=== PATIENT | male | born 1935 | race Caucasian/White ===

== ENCOUNTER 2016-08-25 13:53 | Inpatient (IN) | payer MEDICARE, OTHER ==
--- NOTE | ~2016-08-25 | DS ---
Discharge Summary [facility] [address] [place]. [address] NAME: SUZANNA WILKINSON : 31 STATUS : DIS IN PAT#: [id number] AGE: 81 ADM/REG DATE : 08/25/16 MR#: [id number] REPORT SERV DATE: 08/28/16 DICTATED BY: JHON WILLARD DATE: 08/28/16 REPORT STATUS : Draft TRANSCRIBED BY: MODL DATE: 08/28/16 ADMISSION DATE: 08/25/2016 DISCHARGE DATE: 08/28/2016 DISCHARGE DIAGNOSES: 1. Bronchitis versus early pneumonia. 2. Acute hypoxic respiratory failure secondary to above, the patient is being discharged to home with 2 L of oxygen per nasal cannula. 3. Initially suspected pulmonary embolism, however, ruled out during this hospital stay. 4. History of coronary artery disease. 5. History of peripheral artery disease. 6. History of dementia. 7. Do not resuscitate. CONSULTANTS: None. PROCEDURES: None. HOSPITAL COURSE: This is an 81-year-old gentleman with underlying dementia, who was admitted to the hospital with initial concerns for possible PE. For details, please refer to H and P by Dr. Braeden Saleh. In summary, the patient was admitted and was started on IV heparin drip for the concerns for the PE. The patient was also started on broad-spectrum antibiotics for concerns for possible HCAP. Throughout the hospital stay, the patient was ruled out of PE and DVT with a negative V/Q scan as well as a negative bilateral lower extremity ultrasounds. Also, the patient had a CT of the chest done that showed possible early infiltrates, bilateral lung farr. However, the patient never really developed any fever or even leukocytosis. The patient also had a negative procalcitonin level. The patient could possibly have early viral pneumonia versus bronchitis, and thus the patient's antibiotics was titrated down to Levaquin alone. Also, initially, when the patient was admitted the patient apparently was suffering from acute dyspnea, however, throughout the hospital stay, the patient's respiratory status improved though he did require 2 L of oxygen continuously. The patient is being discharged to home with home O2 at 2 L. The patient was also seen and evaluated by Physical Therapy, who recommended discharging the patient back to [facility] for further care. The patient is now being discharged to home in stable condition to be closely followed as an outpatient. DISCHARGE DESTINATION: [facility]. MEDICATIONS: No changes except for a five-day course of Levaquin. FOLLOWUP: Please follow up with PCP in the next one to two weeks. A total of 40 minutes spent in coordinating this patient's discharge today. DICTATED BY: Jhon Willard MD Discharge Summary [address] [address] NAME: SUZANNA WILKINSON : 33 STATUS : DIS IN PAT#: [id number] AGE: 81 ADM/REG DATE : 08/25/16 MR#: [id number] REPORT SERV DATE: 08/28/16 DICTATED BY: JHON WILLARD DATE: 08/28/16 REPORT STATUS : Draft TRANSCRIBED BY: WILEY DATE: 08/28/16 [facility] Jhon Willard MD / [id number] CC: MD Robert Ku M.D.
--- NOTE | ~2016-08-25 | HP ---
History And Physical [place] [id number] [facility] [place]. [address] NAME: SUZANNA WILKINSON : 31 STATUS : ADM IN [facility]#: [id number] AGE: 81 ADM/REG DATE : 08/25/16 MR#: [id number] REPORT SERV DATE: 08/25/16 DICTATED BY: MOISE WU DATE: 08/25/16 REPORT STATUS : Draft TRANSCRIBED BY: MODL DATE: 08/25/16 DATE OF ADMISSION: 08/25/2016 This is a direct admission from [facility]. PRIMARY CARE DOCTOR: Possibly is Dr. Barahona. HISTORY OF PRESENT ILLNESS: This is an 81-year-old male with known history of dementia, does not know the month at baseline, history of gout, apparent insomnia; however, he is on Klonopin at night. There is concern for possible neuropathy for which the patient is on Cymbalta; BPH on Flomax; unclear reason as why the patient is on hydroxychloroquine, his Plaquenil and sulfasalazine. We will need records from PCP; known history of COPD on Spiriva; possible gastroparesis on Reglan. Known history of PAD with carotid endarterectomy history, done by Dr. Edward, 10 to 12 years ago. Known history of peptic ulcer disease with partial gastrectomy done years ago. History of possible right acoustic neuroma resection. History of CAD with CABG x5 done multiple years ago. He is a patient at [facility]. The patient was requesting direct admission from a physician at [facility]. The patient describes having a possible mucous plug with possible instability issues. As a result, the patient was sent over here for escalation of care. I did not get a phone call until this morning at 10:00 a.m. regarding this patient. The patient thankfully was much better clinically than as described. When I last saw the patient, blood pressure 151/67, 98% on 3 L, 20 of respirations, 70 heart rate, and 96.8 temperature. I spoke to the son and he states the patient has had increasing lethargy, recently fever 100.2. The patient was described to have had a positive high probability V/Q scan, cannot give contrast for shortness of breath at [facility]. As a result, the patient came here on heparin drip. The patient had increased cough, possible mucopurulence, positive fevers, positive chills. Positive nausea. No vomiting. No diarrhea. No chest pain or chest pressure. The patient is a very poor historian. He does not know what month it is. PAST MEDICAL HISTORY: See above. PAST SURGICAL HISTORY: See above. REVIEW OF SYSTEMS: 10-point review of systems done, see HPI. Otherwise, negative. History And Physical [address] [address] NAME: SUZANNA WILKINSON : 33 STATUS : ADM IN PAT#: [id number] AGE: 81 ADM/REG DATE : 08/25/16 MR#: [id number] REPORT SERV DATE: 08/25/16 DICTATED BY: MOISE WU DATE: 08/25/16 REPORT STATUS : Draft TRANSCRIBED BY: WILEY DATE: 08/25/16 ALLERGIES: DRUG INTOLERANCE TO GABAPENTIN, SEDATION WELL HAVING FAMILY HISTORY: Hypertension. HOME MEDICATIONS: See MAR. We will continue what is relevant. SOCIAL HISTORY: At least a 40 pack year history of smoking in the past. No current alcohol, drug use, or tobacco use. OBJECTIVE: VITAL SIGNS: Blood pressure 151/67, 98% on 3 L, 20 respirations, 70 heart rate, and 96.8 temperature. GENERAL: Guarded. HEENT: PERRLA. No scleral icterus. CARDIOVASCULAR: Regular rate and rhythm. No murmur. RESPIRATORY: Bibasilar coarse breath sounds. Mild expiratory wheeze very mild. ABDOMEN: Nontender. Nondistended. Positive bowel sounds. EXTREMITIES: No edema. No ecchymosis. NEUROLOGIC: As stated A and O x3/4. GCS of 14. Appears to be his baseline. PSYCH: Unable to assess. LABORATORY DATA: Labs are all pending including a stat portable chest x-ray. ASSESSMENT AND PLAN: 1. Concern for submassive PE. 2. History of peptic ulcer disease and bleeding effect. He is not on any antiplatelets as an outpatient despite having CAD history and PAD history. 3. HCAP suspicion. 4. Questionable mucous plug clinically looks decent in the setting of having a PE, unlikely to have mucous plug. We will need to confirm with the x-ray and CT. 5. History of CAD with CABG and PAD history, not on any antiplatelets given bleeding risk. 6. Dementia. DNR/DNI complete per the son at this time. PLAN: Go ahead and continue to admit this patient. Panculture. Levaquin and Flagyl. Swab his nares for MRSA; if it is positive and concern for MRSA pneumonia, he will need to be placed on IV vancomycin. In the interim, Brovana budesonide, and Solu-Medrol 3 out of 3 GOLD criteria. COPD acute on chronic, hypoxic respiratory failure, DuoNebs hopefully will provide dislodgement of mucous plug if it is the case and if he does have mucosal, he will need a possible bronchoscopic evaluation. We will get a BNP; if it is more than 100, we will diurese the patient. Place him back on his home medications including Flomax. Guard against any hypotension. We will continue his Klonopin as he cannot quit that cold-turkey given seizure withdrawal risk but he does need to be reduced on that dramatically and we would try to wean that off as an outpatient. Place on PPI b.i.d. therapy as the patient is on heparin drip at this time for suspected PE, then I will try to confirm with our own V/Q scan. Unfortunately cannot get a CTA given his CKD status for which he gets apparent iron infusions every week as likely his TI requirement. Elucidate his lung architecture with a CT of the chest, see rest of my orders. History And Physical [address] [address] NAME: SUZANNA WILKINSON : 31 STATUS : ADM IN [facility]#: [id number] AGE: 81 ADM/REG DATE : 08/25/16 MR#: [id number] REPORT SERV DATE: 08/25/16 DICTATED BY: MOISE WU DATE: 08/25/16 REPORT STATUS : Draft TRANSCRIBED BY: MODL DATE: 08/25/16 All questions were answered. It took well over 60 minutes to do. Reference [employer] and [employer]. WST/MODL Moise Wu DO / [id number] CC: Moise Wu, DO
[2016-08-25 16:24] LABS: INTERNATIONAL NORMAL RATI 1.3 UNITS (-); PROTIME (NOT ORD) 16.3 SEC (12.0-14.5)
[2016-08-25 16:25] LABS: PARTIAL THROMBO TIME 73.9 SEC (22.5-37.2)
[2016-08-25 16:34] LABS: LACTATE 1.1 MMOL/L (0.3-2.4)
[2016-08-25 16:38] LABS: A/G RATIO 0.7 (0.7-1.9); ALBUMIN 2.3 G/DL (3.5-5.0); ALKALINE PHOSPHATASE 131 U/L (45-117); BUN (BLOOD UREA NITROGEN) 38 MG/DL (6-23); CALCIUM, SERUM 8.4 MG/DL (8.5-10.4); CHLORIDE, SERUM 107 MMOL/L (96-112); CO2 (CARBON DIOXIDE) 26 MMOL/L (24-34); CREATININE 1.84 MG/DL (0.70-1.30); GFR AFRICAN AMERICAN 38 ML/MIN (>=60); GFR NON AFRICAN AMERICAN 33 ML/MIN (>=60); GLOBULIN 3.5 G/DL (2.5-4.1); GLUCOSE, SERUM 92 MG/DL (60-99); PHOSPHORUS, SERUM 3.3 MG/DL (2.5-4.5); POTASSIUM, SERUM 3.7 MMOL/L (3.5-5.3); SGOT(AST) 16 U/L (5-40); SGPT(ALT) 10 U/L (5-65); SODIUM, SERUM 141 MMOL/L (135-148); TOTAL BILIRUBIN 0.3 MG/DL (0-1.2); TOTAL PROTEIN 5.8 G/DL (6.0-8.5); TROPONIN I 0.04 NG/ML (<0.05)
[2016-08-25 16:59] LABS: PROCALCITONIN 0.13 ng/mL (<0.5)
[2016-08-25 17:45] LABS: B NATRIURETIC PEPTIDE (BNP) 164.1 PG/ML (< 100.0)
[2016-08-25 17:53] LABS: BASOPHILS 0.4 %; BASOPHILS ABSOLUTE 0.03 10/3/uL (0.0-0.16); EOSINOPHILS 3.3 %; EOSINOPHILS ABSOLUTE 0.28 10/3/uL (0.0-0.53); HEMOGLOBIN 8.2 g/dL (13.6-17.8); IMMATURE GRANULOCYTES 0.6 %; IMMATURE GRANULOCYTES ABSOLUTE 0.05 10/3/uL (0.0-0.11); LYMPHOCYTES 15.3 %; MEAN CORPUS HGB CONC 31.5 g/dL (32.0-36.0); MEAN CORPUSCULAR HEMOGLOB 30.5 pg (26.0-34.0); MEAN CORPUSCULAR VOLUME 96.7 fL (80-100); MONOCYTES 10.5 %; MONOCYTES ABSOLUTE 0.89 10/3/uL (0.21-1.20); NEUTROPHILS 69.9 %; NEUTROPHILS ABSOLUTE 5.96 10/3/uL (2.02-8.40); PLATELET COUNT 285 10/3/uL (150-400); RED CELL COUNT 2.69 10/6/uL (4.7-6.1); WHITE BLOOD CELLS 8.5 10/3/uL (4.5-10.5)
[2016-08-25 17:56] LABS: MANUAL DIFF NO %
[2016-08-25 18:10] LABS: LACTATE 1.1 MMOL/L (0.3-2.4)
[2016-08-25] MEDS ORDERED: ARICEPT10 PO (21:16)
[2016-08-25] MEDS ORDERED: Z300 PO (21:16)
[2016-08-25] MEDS ORDERED: NORV5 PO (21:16)
[2016-08-25] MEDS ORDERED: KLONO2 PO (21:17)
[2016-08-25] MEDS ORDERED: SUCR PO (21:17)
[2016-08-25] MEDS ORDERED: ASAEC PO (21:17)
[2016-08-25] MEDS ORDERED: DSS PO (21:18)
[2016-08-25] MEDS ORDERED: CYMBALTA60 PO (21:18)
[2016-08-25] MEDS ORDERED: METPAKSF PO (21:19)
[2016-08-25] MEDS ORDERED: L40 PO (21:19)
[2016-08-25] MEDS ORDERED: FLOMAX4 PO (21:19)
[2016-08-25] MEDS ORDERED: XALAT OPH (21:20)
[2016-08-25] MEDS ORDERED: LIPITOR20 PO (21:20)
[2016-08-25] MEDS ORDERED: NAMENDA10 MG PO (21:20)
[2016-08-25] MEDS ORDERED: REG5 PO (21:21)
[2016-08-25] MEDS ORDERED: LOP25 PO (21:21)
[2016-08-25] MEDS ORDERED: PROTONIX PO (21:22)
[2016-08-25] MEDS ORDERED: PLAQ200B PO (21:22)
[2016-08-25] MEDS ORDERED: NITROSTAT0.4 MG SL (21:22)
[2016-08-25] MEDS ORDERED: MIRALAX POWDER1 PKT PO (21:22)
[2016-08-25] MEDS ORDERED: RESTASIS OPH (21:23)
[2016-08-25] MEDS ORDERED: ZOFRAN ODT4 MG PO/SL (21:23)
[2016-08-25] MEDS ORDERED: SPIRIVA INH (21:24)
[2016-08-25] MEDS ORDERED: PCET PO (21:24)
[2016-08-25] MEDS ORDERED: SAS500 PO (21:26)
[2016-08-25] MEDS ORDERED: SYN125 PO (21:27)
[2016-08-25 21:37] LABS: GLYCOHEMOGLOBIN (HbA1c) 4.1 % (4.7-6.1)
[2016-08-26 05:17] LABS: BASOPHILS 0.2 %; BASOPHILS ABSOLUTE 0.01 10/3/uL (0.0-0.16); EOSINOPHILS 0.2 %; EOSINOPHILS ABSOLUTE 0.01 10/3/uL (0.0-0.53); HEMATOCRIT 24.1 % (40.0-51.0); HEMOGLOBIN 7.8 g/dL (13.6-17.8); IMMATURE GRANULOCYTES 1.4 %; IMMATURE GRANULOCYTES ABSOLUTE 0.08 10/3/uL (0.0-0.11); LYMPHOCYTES 7.9 %; LYMPHOCYTES ABSOLUTE 0.44 10/3/uL (0.67-4.30); MEAN CORPUS HGB CONC 32.4 g/dL (32.0-36.0); MEAN CORPUSCULAR HEMOGLOB 30.7 pg (26.0-34.0); MEAN CORPUSCULAR VOLUME 94.9 fL (80-100); MEAN PLATELET VOLUME 9.1 fL (9.2-13.0); MONOCYTES 2.9 %; MONOCYTES ABSOLUTE 0.16 10/3/uL (0.21-1.20); NEUTROPHILS 87.4 %; PLATELET COUNT 302 10/3/uL (150-400); RBC DISTRIBUTION WIDTH 19.9 % (12.0-16.0); RED CELL COUNT 2.54 10/6/uL (4.7-6.1); WHITE BLOOD CELLS 5.6 10/3/uL (4.5-10.5)
[2016-08-26 05:18] LABS: PARTIAL THROMBO TIME 62.5 SEC (22.5-37.2)
[2016-08-26 05:21] LABS: CALCIUM, SERUM 8.4 MG/DL (8.5-10.4); CHLORIDE, SERUM 105 MMOL/L (96-112); CO2 (CARBON DIOXIDE) 25 MMOL/L (24-34); GFR AFRICAN AMERICAN 42 ML/MIN (>=60); GFR NON AFRICAN AMERICAN 36 ML/MIN (>=60); PHOSPHORUS, SERUM 3.4 MG/DL (2.5-4.5); POTASSIUM, SERUM 3.5 MMOL/L (3.5-5.3); SODIUM, SERUM 139 MMOL/L (135-148)
[2016-08-26 05:22] LABS: MANUAL DIFF NO %
[2016-08-26 05:24] LABS: BUN (BLOOD UREA NITROGEN) 31 MG/DL (6-23); GLUCOSE, SERUM 118 MG/DL (60-99)
[2016-08-27 05:12] LABS: BASOPHILS 0.2 %; BASOPHILS ABSOLUTE 0.01 10/3/uL (0.0-0.16); EOSINOPHILS 0.7 %; EOSINOPHILS ABSOLUTE 0.04 10/3/uL (0.0-0.53); HEMATOCRIT 22.6 % (40.0-51.0); HEMOGLOBIN 7.2 g/dL (13.6-17.8); IMMATURE GRANULOCYTES 0.8 %; IMMATURE GRANULOCYTES ABSOLUTE 0.05 10/3/uL (0.0-0.11); LYMPHOCYTES 23.4 %; LYMPHOCYTES ABSOLUTE 1.41 10/3/uL (0.67-4.30); MANUAL DIFF NO %; MEAN CORPUS HGB CONC 31.9 g/dL (32.0-36.0); MEAN CORPUSCULAR HEMOGLOB 30.5 pg (26.0-34.0); MEAN CORPUSCULAR VOLUME 95.8 fL (80-100); MEAN PLATELET VOLUME 9.2 fL (9.2-13.0); MONOCYTES ABSOLUTE 0.54 10/3/uL (0.21-1.20); NEUTROPHILS 65.9 %; NEUTROPHILS ABSOLUTE 3.97 10/3/uL (2.02-8.40); NUCLEATED RED BLOOD CELLS 0.7 /100WBC (0-0); PLATELET COUNT 287 10/3/uL (150-400); RBC DISTRIBUTION WIDTH 20.2 % (12.0-16.0); RED CELL COUNT 2.36 10/6/uL (4.7-6.1)
[2016-08-27 05:18] LABS: D-DIMER QUANTITATIVE 2.81 ug/mLFEU (< 0.50)
[2016-08-27 05:31] LABS: BUN (BLOOD UREA NITROGEN) 27 MG/DL (6-23); CALCIUM, SERUM 8.4 MG/DL (8.5-10.4); CHLORIDE, SERUM 106 MMOL/L (96-112); CO2 (CARBON DIOXIDE) 25 MMOL/L (24-34); CREATININE 1.46 MG/DL (0.70-1.30); GFR AFRICAN AMERICAN 51 ML/MIN (>=60); GFR NON AFRICAN AMERICAN 44 ML/MIN (>=60); GLUCOSE, SERUM 98 MG/DL (60-99); PHOSPHORUS, SERUM 2.4 MG/DL (2.5-4.5); POTASSIUM, SERUM 3.3 MMOL/L (3.5-5.3); SODIUM, SERUM 140 MMOL/L (135-148)
[2016-08-27 06:58] LABS: PROCALCITONIN 0.05 ng/mL (<0.5)
[2016-08-28 03:25] LABS: BASOPHILS 0.2 %; BASOPHILS ABSOLUTE 0.01 10/3/uL (0.0-0.16); EOSINOPHILS 1.4 %; EOSINOPHILS ABSOLUTE 0.07 10/3/uL (0.0-0.53); HEMOGLOBIN 7.5 g/dL (13.6-17.8); IMMATURE GRANULOCYTES 0.8 %; IMMATURE GRANULOCYTES ABSOLUTE 0.04 10/3/uL (0.0-0.11); LYMPHOCYTES 26.9 %; LYMPHOCYTES ABSOLUTE 1.37 10/3/uL (0.67-4.30); MEAN CORPUS HGB CONC 31.3 g/dL (32.0-36.0); MEAN CORPUSCULAR HEMOGLOB 30.4 pg (26.0-34.0); MEAN CORPUSCULAR VOLUME 97.2 fL (80-100); MEAN PLATELET VOLUME 9.1 fL (9.2-13.0); MONOCYTES 9.4 %; MONOCYTES ABSOLUTE 0.48 10/3/uL (0.21-1.20); NEUTROPHILS 61.3 %; NEUTROPHILS ABSOLUTE 3.13 10/3/uL (2.02-8.40); PLATELET COUNT 256 10/3/uL (150-400); RBC DISTRIBUTION WIDTH 20.3 % (12.0-16.0); RED CELL COUNT 2.47 10/6/uL (4.7-6.1); WHITE BLOOD CELLS 5.1 10/3/uL (4.5-10.5)
[2016-08-28 03:29] LABS: MANUAL DIFF NO %
[2016-08-28 03:45] LABS: CALCIUM, SERUM 8.3 MG/DL (8.5-10.4); CHLORIDE, SERUM 107 MMOL/L (96-112); CO2 (CARBON DIOXIDE) 29 MMOL/L (24-34); CREATININE 1.29 MG/DL (0.70-1.30); GFR AFRICAN AMERICAN 59 ML/MIN (>=60); GFR NON AFRICAN AMERICAN 51 ML/MIN (>=60); GLUCOSE, SERUM 96 MG/DL (60-99); PHOSPHORUS, SERUM 1.9 MG/DL (2.5-4.5); POTASSIUM, SERUM 3.8 MMOL/L (3.5-5.3); SODIUM, SERUM 141 MMOL/L (135-148)
[2016-08-28 03:50] LABS: BUN (BLOOD UREA NITROGEN) 20 MG/DL (6-23)
[2016-08-28] MEDS ORDERED: LEVAQUIN750 MG PO (10:54)
== END 2016-08-28 14:41 | disposition home or self-care (01) | DRG 189 ==
LOC: 6NO 13:53
PROVIDERS: Internal Medicine
DX: J96.01 Acute respiratory failure with hypoxia (principal); J12.9 Viral pneumonia, unspecified; J44.0 Chronic obstructive pulmonary disease with (acute) lower respiratory infection; G62.9 Polyneuropathy, unspecified; K31.84 Gastroparesis; J20.8 Acute bronchitis due to other specified organisms; F03.90 Unspecified dementia, unspecified severity, without behavioral disturbance, psychotic disturbance, mood disturbance, and anxiety; I73.9 Peripheral vascular disease, unspecified; I25.10 Atherosclerotic heart disease of native coronary artery without angina pectoris; D50.9 Iron deficiency anemia, unspecified; N40.0 Benign prostatic hyperplasia without lower urinary tract symptoms; M10.9 Gout, unspecified; Z66 Do not resuscitate; Z90.3 Acquired absence of stomach [part of]; Z87.11 Personal history of peptic ulcer disease; Z95.1 Presence of aortocoronary bypass graft; Z87.891 Personal history of nicotine dependence
CPT/HCPCS: 71010; 71250; 78582; 80048; 80053; 82140; 82962; 83036; 83605; 83735; 83880; 84100; 84132; 84145; 84443; 84484; 85025; 85379; 85610; 85730; 87040; 87641; 93005; 93970; 94640; 97163-GP; A9270-GY; A9540; A9567; C8929; C9113; G8978-CN-GP; G8979-CL-GP; J1956; J2920; Q9957